=== PATIENT | female | born 2000 | race Caucasian/White ===

== ENCOUNTER 2024-08-13 00:39 | Emergency (ER) | payer OTHER ==
[~2024-08-13] VITALS: Ht 175.3 cm; Wt 89.0 kg
[2024-08-13 00:46] VITALS: O2SAT 100
[2024-08-13] MEDS: SODIUM CHLORIDE 0.9% 1,000 ML IV ONE (01:15)
[2024-08-13] MEDS: METOCLOPRAMIDE HCL 10MG/2ML VIAL IV ONE (01:24)
[2024-08-13] MEDS: ONDANSETRON HCL 4MG/2ML INJ IV ONE (01:24)
[2024-08-13 01:32] LABS: BASOPHILS % 0.7 % (0.0-2.0); EOSINOPHILS % 1.1 % (0.0-5.0); HEMATOCRIT. 37.9 % (36.0-48.0); HEMOGLOBIN. 13.4 g/dL (12.0-16.0); LYMPHOCYTES % 27.4 % (20.0-50.0); MEAN CORPUSCULAR HGB CONC 35.2 g/dL (31.0-37.0); MEAN CORPUSCULAR VOLUME 85.1 fL (81.0-99.0); MEAN PLATELET VOLUME 7.9 fl (7.4-10.4); NEUTROPHILS % 63.8 % (40.0-76.0); PLATELET 375 x1000/uL (130-400); RED BLOOD CELL COUNT 4.45 mill/uL (4.2-5.4); RED CELL DISTRIBUTION WIDTH 12.6 % (11.6-14.6); WHITE BLOOD COUNT 12.1 x1000/uL (4.5-11.0)
[2024-08-13 01:54] LABS: CARBON DIOXIDE 19 mEq/L (21-32); CHLORIDE 103 mEq/L (98-107); POTASSIUM 3.5 mEq/L (3.5-5.1); SODIUM 137 mEq/L (136-145)
[2024-08-13 01:55] LABS: CALCIUM 10.7 mg/dL (8.7-10.4)
[2024-08-13 02:00] LABS: CREATININE 0.9 mg/dL (0.6-1.0); GLUCOSE 154 mg/dL (70-105); UREA NITROGEN BLOOD 14 mg/dL (9-23)
[2024-08-13 02:02] LABS: ALANINE AMINOTRANSFERASE 21 IU/L (10-49); ALBUMIN 5.4 g/dL (3.2-4.8); ASPARTATE AMINOTRANSFERASE 25 IU/L (<34); BILIRUBIN TOTAL 1.6 mg/dL (0.1-1.0); PROTEIN TOTAL 8.5 g/dL (6.0-8.3)
[2024-08-13] MEDS ORDERED: ONDA4TAB50 MT (02:23)
[2024-08-13 02:29] LABS: CLARITY URINE TURBID (CLEAR); COLOR URINE DARK YELLOW (YELLOW); GLUCOSE URINE NEGATIVE (NEGATIVE); KETONES URINE 2+ (NEGATIVE); LEUKOCYTE ESTERASE URINE 2+ (NEGATIVE); NITRITE URINE NEGATIVE (NEGATIVE); OCCULT BLOOD URINE TRACE (NEGATIVE); PH URINE 6.5 (4.5-8.0); PROTEIN URINE 2+ (NEGATIVE); SPECIFIC GRAVITY URINE 1.033 (1.005-1.030)
[2024-08-13] MEDS: MORPHINE SULFATE 4 MG/ML INJ (FOR IV/IM USE) IV ONE (02:54)
[2024-08-13 03:54] LABS: SQUAMOUS EPITHELIAL CELL URINE 3+ /lpf (RARE/1+)
[2024-08-13 03:55] LABS: RBC URINE 0-2 /hpf (0-2)
[2024-08-13 03:56] LABS: BACTERIA URINE 3+
[2024-08-13 04:15] VITALS: BP 121/76; PULSE 75; RESP 14; TEMP 36.89184; O2SAT 100
== END 2024-08-13 04:18 | disposition home or self-care (01) ==
LOC: ER 00:39
DX: R11.2 Nausea with vomiting, unspecified (principal); F41.9 Anxiety disorder, unspecified; Z88.0 Allergy status to penicillin; Z98.890 Other specified postprocedural states
CPT/HCPCS: 99285; 96374; 76705; 96375; 96361; 80053; 81003; 81025; 83690; 85025; 36415; J2765; J2405; J2270; J7030